=== PATIENT | female | born 1985 | race American Indian/Alaskan Native ===

== ENCOUNTER 2017-07-29 13:22 | Emergency (ER) | payer SELFPAY ==
[2017-07-29 13:28] VITALS: BP 121/87
--- NOTE | 2017-07-29 13:48 | Emergency Department Report ---
ED ENT HPI - General Chief complaint: Dental/Oral Stated complaint: SWOLLEN NECK FORM TOOTH INFECTION Time Seen by Provider: 07/29/17 13:43 Source: patient Mode of arrival: Ambulatory Limitations: No Limitations - History of Present Illness Initial comments: Ms. Guzman is a 32-year-old female who presents with tooth pain and there was some tooth in the left upper ridge #16. She also feels swollen glands on the left side of her neck. she is concerned for infection. Denies trouble with swallowing. Denies shortness of breath. MD complaint: tooth pain, other (swollen neck gl swollen) -: Gradual Location: tooth # (16) Severity: mild Quality: aching Context- Dental: history of dental caries - Related Data Previous Rx's Medication Instructions Recorded Last Taken Type Penicillin V Potassium 500 mg PO QID 10 Days #40 tablet 07/29/17 Unknown Rx Allergies Allergy/AdvReac Type Severity Reaction Status Date / Time clindamycin Allergy Swelling Verified 07/29/17 13:28 ED Dental HPI - General Chief complaint: Dental/Oral Stated complaint: SWOLLEN NECK FORM TOOTH INFECTION Time Seen by Provider: 07/29/17 13:43 Source: patient Mode of arrival: Ambulatory Limitations: No Limitations - Related Data Previous Rx's Medication Instructions Recorded Last Taken Type Penicillin V Potassium 500 mg PO QID 10 Days #40 tablet 07/29/17 Unknown Rx Allergies Allergy/AdvReac Type Severity Reaction Status Date / Time clindamycin Allergy Swelling Verified 07/29/17 13:28 ED Review of Systems ROS: Stated complaint: SWOLLEN NECK FORM TOOTH INFECTION Other details as noted in HPI Constitutional: denies: fever, malaise Eyes: denies: eye discharge Respiratory: denies: cough Cardiovascular: denies: chest pain ED Past Medical Hx - Past Medical History Hx Hypertension: Yes - Surgical History Past Surgical History?: No - Social History Smoking Status: Never Smoker Substance Use Type: None - Medications Home Medications: Home Medications Medication Instructions Recorded Confirmed Last Taken Type Penicillin V Potassium 500 mg PO QID 10 Days #40 tablet 07/29/17 Unknown Rx ED Physical Exam - General Limitations: No Limitations General appearance: alert, in no apparent distress, other (normal voice no trismus) - Head Head exam: Present: atraumatic, normocephalic - ENT ENT exam: Absent: other ( no facial swelling no tonsillar edema no gum swelling dental cavity decay tooth #16) - Neck Neck exam: Present: other (no neck mass no swelling). Absent: tenderness, meningismus - Psychiatric Psychiatric exam: Present: normal affect, normal mood - Skin Skin exam: Present: warm, dry, intact, normal color ED Course Vital Signs 07/29/17 13:25 Temperature 98.2 F Pulse Rate 92 H Respiratory 18 Rate Blood Pressure 121/87 O2 Sat by Pulse 100 Oximetry ED Medical Decision Making - Medical Decision Making Ms. Guzman has dental caries and dental infection. Rx: penicillin Critical care attestation.: If time is entered above; I have spent that time in minutes in the direct care of this critically ill patient, excluding procedure time. ED Disposition Clinical Impression: Infected dental caries Disposition: - TO HOME OR SELFCARE Is pt being admited?: No Does the pt Need Aspirin: No Condition: Stable Instructions: Dental Abscess (ED), Dental Caries (ED) Prescriptions: Penicillin V Potassium 500 mg PO QID 10 Days #40 tablet Time of Disposition: 13:48
== END 2017-07-29 14:13 | disposition home or self-care (01) ==
LOC: ED 13:22
DX: K02.9 Dental caries, unspecified (principal); I10 Essential (primary) hypertension; Z88.1 Allergy status to other antibiotic agents
CPT/HCPCS: 99281

== ENCOUNTER 2017-09-01 15:23 | Emergency (ER) | payer OTHER ==
[2017-09-01 15:29] VITALS: BP 130/91
--- NOTE | 2017-09-01 17:20 | Emergency Department Report ---
ED General Adult HPI - General Chief complaint: Neck Pain/Injury Stated complaint: NECK PAIN/SORE THROAT Time Seen by Provider: 09/01/17 17:09 Source: patient Mode of arrival: Ambulatory Limitations: No Limitations - History of Present Illness Initial comments: Patient is 32 years old female with no significant past medical history. Patient presents to the ER complaining of burning sensation in her throat for the last month or so. Patient denied any fever difficulty swallowing or difficulty breathing. No weight loss or loss of appetite. - Related Data Previous Rx's Medication Instructions Recorded Last Taken Type Penicillin V Potassium 500 mg PO QID 10 Days #40 tablet 07/29/17 Unknown Rx Allergies Allergy/AdvReac Type Severity Reaction Status Date / Time clindamycin Allergy Swelling Verified 07/29/17 13:28 ED Review of Systems ROS: Stated complaint: NECK PAIN/SORE THROAT Other details as noted in HPI Comment: All other systems reviewed and negative Constitutional: denies: chills, fever Respiratory: denies: cough, orthopnea Cardiovascular: denies: chest pain, palpitations, dyspnea on exertion Gastrointestinal: denies: abdominal pain, nausea, vomiting ED Past Medical Hx - Past Medical History Previous Medical History?: Yes Hx Hypertension: Yes Additional medical history: dental infection - Surgical History Past Surgical History?: No - Social History Smoking Status: Never Smoker Substance Use Type: None - Medications Home Medications: Home Medications Medication Instructions Recorded Confirmed Last Taken Type Penicillin V Potassium 500 mg PO QID 10 Days #40 tablet 07/29/17 Unknown Rx ED Physical Exam - General Limitations: No Limitations General appearance: alert, in no apparent distress - Head Head exam: Present: atraumatic, normocephalic, normal inspection - Eye Eye exam: Present: normal appearance - ENT ENT exam: Present: normal exam, normal orophraynx - Respiratory Respiratory exam: Present: normal lung sounds bilaterally. Absent: respiratory distress, wheezes, rales, rhonchi, stridor, chest wall tenderness, accessory muscle use, decreased breath sounds, prolonged expiratory - Cardiovascular Cardiovascular Exam: Present: regular rate, normal rhythm, normal heart sounds - GI/Abdominal GI/Abdominal exam: Present: soft, normal bowel sounds. Absent: distended, tenderness, guarding, rebound, rigid, organomegaly, mass, bruit, pulsatile mass , hernia - Extremities Exam Extremities exam: Present: normal inspection, full ROM, normal capillary refill - Back Exam Back exam: Present: normal inspection, full ROM. Absent: tenderness, CVA tenderness (R), CVA tenderness (L), muscle spasm, paraspinal tenderness, vertebral tenderness, rash noted - Neurological Exam Neurological exam: Present: alert, oriented X3, CN II-XII intact, normal gait, reflexes normal - Skin Skin exam: Present: warm, intact, normal color ED Course Vital Signs 09/01/17 15:26 Temperature 98.8 F Pulse Rate 88 Respiratory 20 Rate Blood Pressure 130/91 O2 Sat by Pulse 99 Oximetry Critical care attestation.: If time is entered above; I have spent that time in minutes in the direct care of this critically ill patient, excluding procedure time. ED Disposition Clinical Impression: GERD (gastroesophageal reflux disease) Disposition: -01 TO HOME OR SELFCARE Is pt being admited?: No Condition: Stable Instructions: Gastroesophageal Reflux Disease (ED) Referrals: PRIMARY CARE, [Primary Care Provider] - 3-5 Days Forms: Work/School Release Form(ED)
== END 2017-09-01 17:39 | disposition home or self-care (01) ==
LOC: ED 15:23
DX: K21.9 Gastro-esophageal reflux disease without esophagitis (principal); I10 Essential (primary) hypertension; Z88.1 Allergy status to other antibiotic agents
CPT/HCPCS: 99282